=== PATIENT | female | born 1965 | race Caucasian/White ===

== ENCOUNTER → 2017-04-23 | Outpatient (CLI) | payer BC ==
[~2017-04-23] MED LIST: ACE3 PO; ACY200 PO; CALC500T76 PO; CET10 PO; DIP5L PO; EMERGEN-C PO; ERG400 PO; FLUTR; KET10 PO; LEV25 PO; LEVOXYL; LOR5 PO; LOR5/325 PO; MV,C1TAB19 PO; PEPCID; [UNRECOGNIZED DRUG - CODE] TP; [UNRECOGNIZED DRUG - OTHER] PO
--- NOTE | 2017-04-28 09:31 | RADIOLOGY IMAGING REPORT ---
FACILITY: [facility] - [place] PATIENT NAME: GUILLAUME ROJAS : [id number] MR: [id number] V: [id number] EXAM DATE: [id number] ORDERING PHYSICIAN: GANESH SANTOYO TECHNOLOGIST: Angelina Stevens PROCEDURE:BILATERAL DIGITAL SCREENING MAMMOGRAM WITH CAD AND 3D BREAST TOMOSYNTHESIS. COMPARISON:04/02/16 with priors back to 03/09/13. INDICATIONS:ROUTINE SCREENING. FINDINGS: Breast parenchyma is heterogeneously dense. Benign appearing circumscribed mass in the posterior central aspect of the right breast is mammographically stable at least back to 2014 although easier to see on the current exam due to the tomosynthesis imaging. There is a small benign appearing mass immediately behind this in the CC view. The patient did have ultrasound in 2011 showing multiple right breast cysts. There are no new mammographic findings concerning for malignancy. DIAGNOSTIC CATEGORY 2--BENIGN FINDING. RECOMMENDATIONS: ROUTINE MAMMOGRAM AND CLINICAL EVALUATION. IMPRESSION: Bi-RADS 2: Benign finding. RECOMMENDATION: Followup screening mammogram in one year. Dictated by: Jonah Grier on 04/26/2017 at 9:44 Transcribed by: STEFANY on 04/26/2017 at 22:50 Approved by: Jessica Zamarripa M.D. on 04/28/2017 at 8:52 [facility]
== END ==
LOC: MAMO 04:27
PROVIDERS: ATTEND Obstetrics & Gynecology
DX: Z12.31 Encounter for screening mammogram for malignant neoplasm of breast (principal); R92.8 Other abnormal and inconclusive findings on diagnostic imaging of breast
CPT/HCPCS: 77063; 77067

== ENCOUNTER → 2017-09-22 | Outpatient (CLI) | payer BC ==
[~2017-09-22] MED LIST changes: +ACYC-50 PO; +LEVO-3 PO; +LEVO88TA45 PO
--- NOTE | 2017-09-22 15:19 | EKG ---
FACILITY: [facility] - [place] PATIENT NAME: GUILLAUME ROJAS : [id number] MR: [id number] V: [id number] EXAM DATE: ORDERING PHYSICIAN: GANESH SANTOYO TECHNOLOGIST: GRADY Test Reason : PALPITATIONS Blood Pressure : / mmHG Vent. Rate : 077 BPM Atrial Rate : 077 BPM P-R Int : 172 ms QRS Dur : 080 ms QT Int : 396 ms P-R-T Axes : 066 034 083 degrees QTc Int : 448 ms Normal sinus rhythm Nonspecific T wave abnormality Abnormal ECG When compared with ECG of 22-SEP-2017 13:22, No significant change was found Referred By: MD SANTOYO Confirmed By:
== END ==
LOC: RESP 14:31
PROVIDERS: ATTEND Obstetrics & Gynecology
DX: Z02.9 Encounter for administrative examinations, unspecified (principal)

== ENCOUNTER → 2017-10-27 | Outpatient (CLI) | payer BC ==
--- NOTE | 2017-10-28 15:35 | RT HOLTER TEST ---
FACILITY: [facility] - [place] PATIENT NAME: GUILLAUME ROJAS : [id number] MR: [id number] V: [id number] EXAM DATE: ORDERING PHYSICIAN: PRADIP ROMERO TECHNOLOGIST: JOHN Hook-up date: 2017-10-27 10:10:00 Duration: 24:00:00 Test Indications: PVCs, abnormal ekg Medications: [id number] QRS complexes 227 Ventricular ectopics which represent <1 % of total QRS comp. 13 Supraventricular ectopics which represent <1 % of total QRS comp. * Paced QRS complexes which represent % of total QRS comp. VENTRICULAR ECTOPY 223 Isolated 0 Bigeminal Cycles 2 Couplets 0 Runs 0 Beats in Runs * Beats LONGEST at * BPM at :: -- * Beats FASTEST at * BPM at :: -- SUPRAVENTRICULAR ECTOPY 6 Isolated 0 Couplets 2 Runs 7 Beats in Runs 4 Beats LONGEST at 123 BPM at 07:13:53 2017-10-28 3 Beats FASTEST at 144 BPM at 12:37:23 2017-10-27 HEART RATES 55 MIN at 08:59:29 2017-10-28 82 AVG 130 MAX at 14:44:44 2017-10-27 LONGEST RR 1.336 secs at 09:15:01 2017-10-28 S-T LEVELS Channel 1 -12.800 mm MIN at 10:10:00 2017-10-27 -12.800 mm MAX at 10:10:00 2017-10-27 Channel 2 -12.800 mm MIN at 10:10:00 2017-10-27 -12.800 mm MAX at 10:10:00 2017-10-27 Channel 3 -12.800 mm MIN at 10:10:00 2017-10-27 -12.800 mm MAX at 10:10:00 2017-10-27 Rare supraventricular ectopy with a few couplets and a triplet. No sustained runs were recorded. Occasional ventricular ectopy with a pair of couplets recorded. No runs were noted. No pauses were recorded. Some T wave flattening and inversion was noted periodically throughout the recording. Confirmed by FERDINAND DAIGLE ([id number]) on 10/28/2017 3:34:41 PM Referred By: Overread By: FERDINAND DAIGLE
== END ==
LOC: US 02:39
PROVIDERS: ATTEND Internal Medicine Cardiovascular Disease
DX: I49.3 Ventricular premature depolarization (principal)
CPT/HCPCS: 93225; 93226; 93306

== ENCOUNTER → 2018-06-10 | Outpatient (CLI) | payer BC ==
[~2018-06-10] MED LIST changes: +ELDE1CAP; +LYSI500T34 PO; +MAGN400T10; +OMEP1CAP27 PO
--- NOTE | 2018-06-13 10:48 | RADIOLOGY IMAGING REPORT ---
FACILITY: [facility] - [place] PATIENT NAME: GUILLAUME ROJAS : [id number] MR: [id number] V: [id number] EXAM DATE: ORDERING PHYSICIAN: GANESH SANTOYO TECHNOLOGIST: Angelina Stevens PROCEDURE:BILATERAL DIGITAL SCREENING MAMMOGRAM WITH CAD ASSISTED INTERPRETATION & 3D TOMOSYNTHESIS COMPARISON:Prior mammograms. INDICATIONS:SCREENING FINDINGS: Scattered fibroglandular densities are present in both breasts. A small benign appearing mass is present in the central Right breast, unchanged. DIAGNOSTIC CATEGORY 2--BENIGN FINDING. RECOMMENDATIONS: ROUTINE MAMMOGRAM AND CLINICAL EVALUATION. IMPRESSION: BIRADS 2: Benign finding. Dictated by: Reggie Alcantara M.D. on 06/10/2018 at 16:50 Transcribed by: SHANTA on 06/13/2018 at 8:24 Approved by: Jessica Zamarripa M.D. on 06/13/2018 at 10:47 [facility]
== END ==
LOC: MAMO 02:43
PROVIDERS: ATTEND Obstetrics & Gynecology
DX: Z12.31 Encounter for screening mammogram for malignant neoplasm of breast (principal)
CPT/HCPCS: 77063; 77067

== ENCOUNTER → 2018-09-26 | Outpatient (CLI) | payer BC ==
--- NOTE | 2018-09-26 14:06 | RADIOLOGY IMAGING REPORT ---
FACILITY: PATIENT NAME: Moni Lund : 1965 MR: [id number] V: [id number] EXAM DATE: ORDERING PHYSICIAN: GANESH SANTOYO TECHNOLOGIST: Location: [facility] Patient: Moni Lund : 1965 Visit/Account:[id number] Date of Sevice: 09/26/2018 ADDENDUM #1 ADDENDUM: Note that the left ovary is very difficult to visualize. On some images there appears to b e a 1.9 cm hypoechoic structure. This could represent artifact, a collapsed cyst or even a small hem orrhagic cyst. Since the ovary is not well seen a repeat ultrasound in several cycles is recommended to better visualize the left ovary and to see if this apparent finding persists. Report Dictated By: Jacob Gregory MD at 09/27/2018 1:18 PM Report E-Signed By: Jacob Gregory MD at 09/27/2018 1:24 PM ORIGINAL REPORT US [facility] TRANVAGINAL NON-OB HISTORY: Abdominal/pelvic bloating and discomfort TECHNIQUE: There has been less than satisfactory transvaginal ultrasonic evaluation of the pelvis due to the patient's body habitus. COMPARISON: None. FINDINGS: Uterus: Anteverted; it measures: 7 cm length x 3.4 cm AP x 5 cm transverse. Myometrium: The myometrium is mildly heterogeneous. Anteriorly projecting from the fundus of the uter us is a 2.5 x 2.7 cm fibroid. Endometrium: Unremarkable; endometrial thickness 3.4 mm. Cervix: Grossly negative. Ovaries: Right - the right ovary measures 1.6 x 1.3 x 1.0 cm in size. It is not optimally seen. Left - left ovary measures 2.5 x 2.1 x 1.7 cm in size. It is also not optimally seen. On some im ages there appears to be a 19 x 19 hypoechoic structure in or adjacent to the left ovary. It is not o ptimally visualized. Blood flow is difficult to document in each ovary by duplex Doppler ultrasound. Adnexa: Grossly unremarkable. Free pelvic fluid: None. Bladder: The bladder is decompressed for transvaginal imaging. IMPRESSION: 1. In the anterior uterine fundus there is a 2.5 x 2.7 cm predominantly isoechoic fibroid. 2. The right ovary is difficult to visualize. 3. The left ovary is difficult to visualize, but one of the images there does appear to be a 1.9 cm h ypoechoic region. This could represent a persistent luteal cyst. Report Dictated By: Jacob Gregory MD at 09/26/2018 1:54 PM Report E-Signed By: Jacob Gregory MD at 09/26/2018 2:00 PM WSN:[email or web address]-RONNIE
== END ==
LOC: RAD 10:42
PROVIDERS: ATTEND Obstetrics & Gynecology
DX: Z02.9 Encounter for administrative examinations, unspecified (principal)

== ENCOUNTER → 2018-11-08 | Outpatient (CLI) | payer BC ==
[~2018-11-08] MED LIST changes: +BARIUM SULFATE 176 GM BTL PO ONE; +BARIUM SULFATE 340 GM POWD ONE
--- NOTE | 2018-11-08 15:12 | RADIOLOGY IMAGING REPORT ---
FACILITY: [facility] PATIENT NAME: Moni Lund : 1965 MR: [id number] V: [id number] EXAM DATE: ORDERING PHYSICIAN: PATO ORNELAS TECHNOLOGIST: Location: Patient: Moni Lund : 1965 Visit/Account:[id number] Date of Sevice: 11/08/2018 Exam type: ESOPHAGRAM History: History of esophageal ulcers Comparison: None. Findings: Double contrast esophagram was performed with thick and thin barium and air contrast there was no dem onstration of a hiatal hernia. There is mild narrowing at the lower esophageal sphincter. There is no evidence of mucosal erosion or gastroesophageal reflux. The fluoroscopy dose area product was 290 .88 micro-Cruz per meter squared IMPRESSION: 1. There is very mild narrowing at the lower esophageal sphincter. The esophagram was otherwise unr emarkable Report Dictated By: Jessica Zamarripa MD at 11/08/2018 3:01 PM Report E-Signed By: Jessica Zamarripa MD at 11/08/2018 3:03 PM WSN:[email or web address]
== END ==
LOC: CT 00:41
PROVIDERS: ATTEND Obstetrics & Gynecology
DX: K22.8 Other specified diseases of esophagus (principal)
CPT/HCPCS: 74220